=== PATIENT | female | born 1955 | race Caucasian/White ===

== ENCOUNTER → 2017-03-31 | Outpatient (CLI) | payer OTHER | LOC: FIMAGING 08:26 | DX: Z12.31 Encounter for screening mammogram for malignant neoplasm of breast (principal) | CPT/HCPCS: G0202 ==

== ENCOUNTER → 2018-04-22 | Outpatient (CLI) | payer OTHER | LOC: FIMAGING 09:02 | PROVIDERS: ATTEND Internal Medicine | DX: Z12.31 Encounter for screening mammogram for malignant neoplasm of breast (principal) ==

== ENCOUNTER 2018-08-04 05:24 | Observation (INO) | payer OTHER ==
[2018-08-04] MEDS ORDERED: NS 1,000 ML IV ONE ×2 (05:26→05:32)
--- NOTE | 2018-08-04 05:27 | EDPHY ---
H & P Time Seen by Provider: 08/04/18 05:27 HPI/ROS: HPI CHIEF COMPLAINT: Nausea and vomiting and syncope HISTORY OF PRESENT ILLNESS: Very pleasant 63-year-old female, otherwise healthy does not take any daily medications she presents emergency room with nausea vomiting and syncope. Patient states she woke up abruptly around 230 in the morning with nausea, vomited multiple times. Also thought she was going to have diarrhea but had a rather solid bowel movement. She states she vomited numerous times, she also had 4 seperate episodes of syncope. States she vomited passed out. She did fall at 1 point inch Strike her face with a bloody nose. Denies any palpitations, denies chest pain or shortness of breath. Does complain of some abdominal cramping. Denies recent illness. Denies feeling lightheaded. Denies headache. Additionally the patient did have a witnessed brief syncopal episode in triage by nursing staff. She did not lose pulse. There was no seizure activity. No bowel or bladder incontinence. And Past Medical History: Denies medical history Past Surgical History: Denies surgical history Social History: Denies drugs alcohol tobacco. Employ here at the hospital. Family History: Noncontributory ROS REVIEW OF SYSTEMS: 10 Systems were reviewed and negative with the exception of the elements mentioned in the history of present illness. Exam Constitutional nontoxic, triage nursing summary reviewed, vital signs reviewed , awake/alert. Eyes normal conjunctivae and sclera, EOMI, PERRLA. HENT normal inspection, atraumatic, moist mucus membranes, no epistaxis, neck supple/ no meningismus, no raccoon eyes. Respiratory clear to auscultation bilaterally, normal breath sounds, no respiratory distress, no wheezing. Cardiovascular rate normal, regular rhythm, no murmur, no edema, distal pulses normal. Gastrointestinal soft, non-tender, no rebound, no guarding, normal bowel sounds, no distension, no pulsatile mass. Genitourinary no CVA tenderness. Musculoskeletal no midline vertebral tenderness, full range of motion, no calf swelling, no tenderness of extremities, no meningismus, good pulses, neurovascularly intact. Skin pink, warm, & dry, no rash, skin atraumatic. Neurologic awake, alert and oriented x 3, AAOx3, moves all 4 extremities equally, motor intact, sensory intact, CN II-XII intact, normal cerebellar, normal vision, normal speech. Psychiatric normal mood/affect. Heme/Lymph/Immune no lymphadenopathy. Differential Diagnosis: Includes but is not limited to in a particular order dehydration, electrolyte disturbance, cardiac arrhythmia, infection, vasovagal syncope, orthostatic syncope Medical Decision Making: Plan for this patient IV establishment IV fluid bolus 2 L, IV Zofran nausea, EKG, troponin, chest x-ray, basic electrolytes and re- evaluate. Re-evaluation: EKG interpretation by me on record in [employer] system. Impression and time of EKG 5:47 a.m., sinus rhythm rate of 71, no signs of cardiac arrhythmia, no prolonged intervals. No signs of acute ischemia. ED x-ray chest one view: Negative For acute cardiopulmonary disease. Troponin 0.01 CT scan head without contrast negative for acute traumatic injury. ED x-ray chest negative for acute cardiopulmonary disease. Long discussed with the patient given her for discrete episodes of syncope, in the setting of volume depletion nausea vomiting plan will be for admission to the hospital for observation today. Patient has agreed to stay. Today for observation due to syncope. 0700: I did speak with Dr. Olson. Agrees to admit the patient. Source: Patient Constitutional: Initial Vital Signs Temperature (C) 36.8 C 08/04/18 05:27 Heart Rate 74 08/04/18 05:27 Respiratory Rate 16 08/04/18 05:27 Blood Pressure 124/71 H 08/04/18 05:27 O2 Sat (%) 97 08/04/18 05:27 O2 Delivery Mode Room Air Allergies/Adverse Reactions: aspirin [Aspirin] Allergy (Mild, Verified 08/04/18 05:33) Other-Enter Comments Home Medications: Medication Instructions Recorded Fluticasone/Salmeter 250/50Mcg 1 puffs IH BID 08/04/18 [Advair 250/50 (*)] Ivermectin [Soolantra] 1 jamee TP DAILY 08/04/18 Ondansetron Odt [Zofran Odt 4 mg 4 mg PO Q4HRS PRN #12 tab 08/04/18 (*)] Medical Decision Making - Data Points Laboratory Results: Laboratory Results 08/04/18 05:47 08/04/18 05:47 Medications Given: Discontinued Medications Sodium Chloride (Ns) 1,000 mls @ 0 mls/hr IV EDNOW ONE; Wide Open PRN Reason: Protocol Stop: 08/04/18 05:27 Last Admin: 08/04/18 05:49 Dose: 1,000 mls Sodium Chloride (Ns) 1,000 mls @ 0 mls/hr IV ONCE ONE PRN Reason: Wide Open Stop: 08/04/18 05:33 Last Admin: 08/04/18 05:49 Dose: 1,000 mls Miscellaneous Medication (Ivermectin [Soolantra]) 1 jamee TP DAILY DELIO Stop: 01/31/19 10:29 Last Admin: 08/04/18 13:00 Dose: Not Given Ondansetron HCl (Zofran) 4 mg IVP EDNOW ONE Stop: 08/04/18 05:36 Last Admin: 08/04/18 05:54 Dose: 4 mg Fluticasone/Salmeterol (Advair) 1 puffs IH BID [facility] Stop: 01/31/19 10:29 Last Admin: 08/04/18 10:28 Dose: Not Given Point of Care Test Results: Chemistry 08/04/18 05:55 POC Troponin I 0.01 ng/mL ng/mL (0.00-0.08) Departure - Departure Disposition: [facility] Inpatient Acute Clinical Impression: Syncope Qualifiers: Syncope type: unspecified Qualified Code(s): R55 - Syncope and collapse Vomiting Qualifiers: Vomiting type: unspecified Vomiting Intractability: non-intractable Nausea presence: with nausea Qualified Code(s): R11.2 - Nausea with vomiting, unspecified Condition: Fair
[2018-08-04] MEDS ORDERED: ONDANSETRON 4 MG/2 ML VIAL IVP ONE (05:35)
[2018-08-04] MEDS ORDERED: ONDANSETRON 4 MG/2 ML VIAL ONE (05:52)
[2018-08-04 05:58] LABS: PLATELET COUNT 184 10^3/uL (150-400)
[2018-08-04 06:07] LABS: INR 0.97 (0.83-1.16); PROTIME(PATIENT) 13.1 SEC (12.0-15.0)
[2018-08-04] MEDS ORDERED: ONDANSETRON 4 MG/2 ML VIAL IVP PRN ×2 (07:18→11:31)
[2018-08-04] MEDS ORDERED: ACETAMINOPHEN 325 MG TAB PO PRN ×2 (07:18→11:31)
[2018-08-04] MEDS ORDERED: ONDANSETRON DISINTEGRATING 4 MG TAB PO PRN ×2 (07:18→11:31)
--- NOTE | 2018-08-04 07:21 | CPEKG ---
Test Reason : OPEN Blood Pressure : / mmHG Vent. Rate : 071 BPM Atrial Rate : 071 BPM P-R Int : 147 ms QRS Dur : 089 ms QT Int : 408 ms P-R-T Axes : 052 -09 048 degrees QTc Int : 444 ms Sinus rhythm Confirmed by Jonathan Robbins ([id number]) on 08/04/2018 7:20:46 AM Referred By: Confirmed By:Jonathan Robbins
[2018-08-04] MEDS ORDERED: NS 1,000 ML IV SCH (07:30)
[2018-08-04] MEDS ORDERED: IVERMECTIN TP SCH (10:30)
[2018-08-04] MEDS ORDERED: FLUTICASONE/SALMETER 250/50MCG DISKUS IH SCH (10:30)
[2018-08-04] MEDS ORDERED: PROMETHAZINE HCL 25 MG/ML INJ IVP PRN (11:31)
--- NOTE | 2018-08-04 12:11 | GHP ---
DATE OF ADMISSION: 08/04/2018 The patient is a pleasant 63-year-old female with a history of asthma, who awoke at 2 o'clock this mo rning with some nausea and vomiting. The first time she vomited, she felt lightheaded and dizzy and passed out. She passed out a couple of times subsequently. She denies chest pain, palpitations, fe raquel, chills, although she has chills now. She has not had diarrhea. She did have a bowel movement d uring this. She recently travelled to [place] to see some grandchildren, and those people are sick , as well. Her son is a medical student doing rotations. She has not had any hematemesis or coffee- grounds emesis. She has no personal history of cardiac disease or syncope. She has no family histor y of sudden cardiac . REVIEW OF SYSTEMS: Complete 10-point review of systems conducted, negative except as noted in the HP I. PAST MEDICAL HISTORY: Asthma. ALLERGIES: Aspirin. HOME MEDICATIONS: Advair and ivermectin cream. SOCIAL HISTORY: No tobacco. No alcohol. . 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 FAMILY HISTORY: As in the HPI. PHYSICAL EXAMINATION: VITAL SIGNS: Temp 36.8, blood pressure 124/71, pulse 74, breathing 16 times a minute, 97% on room air. She did have orthostatics which were positive by blood pressure. GENERAL: No acute distress. HEENT: Sclerae anicteric. Oropharynx clear. Mucous membranes moist. NECK: Supple without lymphadenopathy or JVD. LUNGS: Clear to auscultation bilaterally. HEART: S1, S2. Not tachycardic. There is no murmur. ABDOMEN: Soft, nontender, nondistended. LOWER EXTRE MITIES: Without edema. Calves nontender. SKIN: Without rash. NEUROLOGIC: Nonfocal. LABORATORY DATA: UA is negative. Sodium 141, potassium 3.8, chloride 106, bicarb 24, BUN 24, creati nine 0.9, glucose 143. LFTs normal. Troponin less than 0.01. BNP is 74. Coags are normal. White count 9.8, hematocrit 40, platelets 184,000. EKG interpreted by ut shows sinus at 71 with normal axis and intervals. There are no ST or T-wave ch anges. Chest x-ray interpreted by me shows no acute cardiopulmonary disease. Head CT images reviewe d, interpreted by me, show no acute intracranial findings. ASSESSMENT AND PLAN: 63-year-old female with syncope. 1. Syncope. This is almost certainly vasovagal mediated syncope given the proximity to vomiting an d retching. Will follow on telemetry. This is not an ischemic event. 2. Viral gastroenteritis. She is currently tolerating p.o. With follow, give her IV fluids, and p. r.n. antiemetics. She is not having diarrhea. 3. Elevated glucose is a nonfasting sample. Will follow. 4. Leukocytosis, likely secondary to acute infection. 5. Disposition. Will follow on telemetry today. If no events on telemetry, will discharge later to day. /[id number]/MODL
[2018-08-04 15:27] VITALS: BP 102/58
--- NOTE | 2018-08-04 19:09 | GDS ---
DISCHARGE DIAGNOSES: 1. Vasovagal syncope. 2. Viral gastroenteritis. Please see admission history and physical by Dr. Rigoberto Lockwood. The patient presented with a couple episodes of syncope that occurred and an episode of vomiting. She had a normal EKG. She has no sig nificant cardiac history. She had stable vitals and had no events on 6 hours of telemetry monitoring . I discussed the risks and benefits of early discharge with her, and she agrees to early discharge. I had written her a prescription for Zofran and sent it to her pharmacy. /[id number]/MODL
== END 2018-08-04 16:51 | disposition home or self-care (01) ==
LOC: EEVIPCON 05:24 → F2W 08:33
PROVIDERS: ADMIT Family Medicine; ATTEND Family Medicine
DX: R55 Syncope and collapse (principal); K52.9 Noninfective gastroenteritis and colitis, unspecified; E86.9 Volume depletion, unspecified
CPT/HCPCS: 70450; 71045; 93005; 96361; 96374; 99285; G0378; 84484-PO; J2405

== ENCOUNTER → 2019-04-23 | Outpatient (CLI) | payer OTHER | LOC: FIMAGING 10:36 ==